=== PATIENT | male | born 1980 | race Caucasian/White ===

== ENCOUNTER 2018-12-11 12:34 | Emergency (ER) | payer SELFPAY ==
[~2018-12-11] VITALS: Ht 167.6 cm; Wt 52.2 kg
--- NOTE | 2018-12-11 13:05 | ED General ---
General Stated Complaint: GENITAL RASH History of Present Illness Date Seen by Provider: Dec 11, 2018 Time Seen by Provider: 13:04 Initial Comments Patient is a 38-year-old male who presents to the emergency department today accompanied by his for evaluation of a penile injury. The patient states that 3 nights ago he was having oral intercourse and this was preceded by vaginal intercourse.. The next morning he woke up with a sore on the tip of his penis near the urethral meatus. He states it was initially a blister but then turned into a scab over the last 24 hours. No urethral discharge. No difficulty with urination. No fevers. No testicular pain. Patient has been and monogamous for 16 years. Allergies and Home Medications Home Medications Clindamycin HCl 300 Mg Capsule, 300 MG PO TID Prescribed by: CIARAN EASLEY on 12/11/18 7406 Patient Home Medication List Home Medication List Reviewed: Yes Review of Systems Review of Systems Constitutional: no symptoms reported EENTM: no symptoms reported Respiratory: no symptoms reported Cardiovascular: no symptoms reported Gastrointestinal: no symptoms reported Genitourinary: see HPI Musculoskeletal: no symptoms reported Skin: no symptoms reported Physical Exam Vital Signs Capillary Refill : Height, Weight, BMI Height: '" Weight: lbs. oz. kg; BMI Method: General Appearance: No Apparent Distress, WD/WN HEENT: PERRL/EOMI Neck: Full Range of Motion, Normal Inspection Respiratory: Chest Non Tender, Lungs Clear Cardiovascular: Regular Rate, Rhythm Genital/Rectal: Other (very small scab over the superior aspect of the head of the penis just near the urethral meatus. Measures less than 2 mm or approximately 2 mm. No surrounding erythema. The urethral meatus itself is clear and free from discharge. No testicular pain or masses. No epididymal tenderness to manipulation.) Progress/Results/Core Measures Suspected Sepsis SIRS Temperature: Pulse: Respiratory Rate: Blood Pressure / Mean: Results/Orders Vital Signs/I&O Capillary Refill : Progress Note : Time: 13:11 Progress Note Patient is seen and examined in the ER for a small sore on the tip of his penis. No acute signs of infection are present. Patient has low risk for sexually tra nsmitted disease based on his sexual history and he does seem reliable. His is in the room during the interview. On physical exam, he appears to have mild trauma more than any STD. There is no ulcer or chancre. No urethral discharge. I discussed options of testing for STD either via swab or urine. I informed the patient that the tests were only checked for gonorrhea and Chlamydia and that he could go to the health department if he is worried about syphilis. The patient has some concerns over expense and he does have a low suspicion for STD. Because of this, decision is made not to test. Patient is requesting antibiotics as he f ears the lesion may become infected. He does have very poor dentition as does his . This seems reasonable. He is placed on clindamycin. Discharge from the ER. Advised to follow-up at the health department if his symptoms do not improve. Departure Impression Primary Impression: Injury of penile urethra Disposition: HOME, SELF-CARE Condition: Improved Departure-Patient Inst. Referrals: JOESPH SHI MD (PCP/Family) Primary Care Physician Scripts Clindamycin HCl (Clindamycin HCl) 300 Mg Capsule 300 MG PO TID for 7 Days, #21 CAP 0 Refills Prov: CIARAN EASLEY DO 12/11/18 CIARAN EASLEY DO Dec 11, 2018 13:05
[2018-12-11] MEDS ORDERED: CLIN300C11 PO (13:07)
[2018-12-11 13:15] VITALS: BP 118/71
== END 2018-12-11 13:17 | disposition home or self-care (01) ==
LOC: ER FS 12:37
DX: S37.39XA Other injury of urethra, initial encounter (principal); X58.XXXA Exposure to other specified factors, initial encounter
CPT/HCPCS: 99283

== ENCOUNTER 2019-02-11 12:54 | Emergency (ER) | payer SELFPAY ==
[~2019-02-11] VITALS: Ht 165 cm; Wt 50.8 kg
[~2019-02-11 12:54] MED LIST: CLIN300C11 PO
[2019-02-11] MEDS ORDERED: LIDOCAINE/EPI 2% 1:100,00 (XYLOCAINE) 20 ML VIAL ONE (12:59)
--- NOTE | 2019-02-11 13:13 | ED Integumentary General ---
General Chief Complaint: Skin/Wound Problems Stated Complaint: LT KNEE WOUND History of Present Illness Date Seen by Provider: Feb 11, 2019 Time Seen by Provider: 13:12 Initial Comments Patient presenting to the [facility] department for evaluation of that wound to his left knee anteriorly that has been present for several years. He has recent trauma and was more painful and swollen. Allergies and Home Medications Allergies Coded Allergies: No Known Drug Allergies (Unverified , 02/11/19) Home Medications Clindamycin HCl 300 Mg Capsule, 300 MG PO TID Prescribed by: CIARAN EASLEY on 12/11/18 1307 Patient Home Medication List Home Medication List Reviewed: Yes Review of Systems Review of Systems Constitutional: no symptoms reported Musculoskeletal: no symptoms reported Skin: lesions Past Scgsfgj-Mpbivu-Tzfaxg Hx Patient Social History Type Used: Cigarettes 2nd Hand Smoke Exposure: No Recent Hopitalizations: No Seasonal Allergies Seasonal Allergies: No Past Medical History Surgeries: No Respiratory: No Cardiac: No Neurological: No Genitourinary: No Gastrointestinal: No Musculoskeletal: No Endocrine: No HEENT: No Cancer: No Psychosocial: No Integumentary: No Physical Exam Vital Signs Vital Signs - First Documented 02/11/19 13:00 Temp 37.4 Pulse 73 Resp 16 B/P (MAP) 108/70 (83) Pulse Ox 98 O2 Delivery Room Air Capillary Refill : General Appearance: WD/WN, no apparent distress Cardiovascular: regular rate, rhythm Skin: other (Cystic appearing lesion on L anterior knee appx 1 x 1 cm. Red with induration noted.) Procedures/Interventions I&D : Blade Size: 11 I & D Procedure: betadine prep Progress Wound prepped and draped in normal sterile fashion and skin was cleansed with chlorhexidine and injected with 3 cc of 1% lidocaine with epinephrine. 11 blade was used to incise the wound and no purulence was expressed however there was a calcified tissue as well as cottage cheese-appearing material consistent with a subcutaneous cyst that was evacuated. Wound was bleeding but would stop with direct pressure. Progress/Results/Core Measures Results/Orders My Orders Orders - MAGDALENA MARRERO DO Lidocaine/Epi 2% 1:100,000 (Xylocaine/Ep (02/11/19 12:59) Lidocaine/Epi 2% 1:100,000 (Xylocaine/Ep (02/11/19 13:30) Vital Signs/I&O 02/11/19 13:00 Temp 37.4 Pulse 73 Resp 16 B/P (MAP) 108/70 (83) Pulse Ox 98 O2 Delivery Room Air Progress Progress Note : Progress Note Patient with subcutaneous cyst that may have become infected. Wound was opened and no purulence was expressed however do believe this is a subcutaneous cyst will require general surgeon to completely excised. Patient was given information for a local surgeon to follow with put on Keflex told to come back into the car with worsening pain fevers drainage or other general concerns. Departure Impression Primary Impression: Subcutaneous cyst Disposition: HOME, SELF-CARE Condition: Stable Departure-Patient Inst. Referrals: JOESPH SHI MD (PCP/Family) Primary Care Physician Patient Instructions: Wound Incision and Drainage (DC) Add. Discharge Instructions: All discharge instructions reviewed with patient and/or family. Voiced understanding. Follow with a surgeon and come back sooner with any new or worsening symptoms. Thank you! Scripts Cephalexin (Keflex) 500 Mg Capsule 500 MG PO BID, #10 CAP Prov: MAGDALENA MARRERO DO 02/11/19 MAGDALENA MARRERO DO Feb 11, 2019 13:13
[2019-02-11] MEDS ORDERED: LIDOCAINE/EPI 2% 1:100,00 (XYLOCAINE) 20 ML VIAL INJ ONE (13:30)
[2019-02-11] MEDS ORDERED: CEPH-507 PO (13:31)
[2019-02-11 13:34] VITALS: BP 108/70
== END 2019-02-11 13:34 | disposition home or self-care (01) ==
LOC: EDUNIT# 12:54 → ER FS 12:56
DX: L72.9 Follicular cyst of the skin and subcutaneous tissue, unspecified (principal)
CPT/HCPCS: 99282

== ENCOUNTER 2020-04-12 02:48 | Emergency (ER) | payer SELFPAY ==
[~2020-04-12] VITALS: Ht 167.4 cm; Wt 52.1 kg
[~2020-04-12 02:48] MED LIST changes: +CEPH-507 PO
[2020-04-12 02:56] VITALS: BP 149/83
[2020-04-12 03:24] LABS: CLARITY,URINE CLEAR; COLOR,URINE YELLOW
[2020-04-12 03:25] LABS: BILIRUBIN,URINE NEGATIVE (NEGATIVE); GLUCOSE, URINE (UA) NEGATIVE (NEGATIVE); KETONES,URINE NEGATIVE (NEGATIVE); LEUKOCYTE ESTERASE ,URINE NEGATIVE (NEGATIVE); NITRITE,URINE NEGATIVE (NEGATIVE); PROTEIN,URINE NEGATIVE (NEGATIVE)
--- NOTE | 2020-04-12 06:41 | ED GU-Female ---
General Chief Complaint: - Urinary Stated Complaint: URINARY PROBLEMS Nursing Triage Note: pt reports increased frequency, bilateral back discomfort and fullness. denies fever. Nursing Sepsis Screen: No Definite Risk Source: patient History of Present Illness Date Seen by Provider: Apr 12, 2020 Time Seen by Provider: 03:00 Initial Comments Patient is a 39-year-old male who presents with bilateral flank pain and the urge to urinate. Patient also reports tingling after urination. He denies hematuria, nausea, vomiting, chills, sweats, lower abdominal pain or pelvic pain. He denies constipation diarrhea. No testicular pain tenderness or swelling. No history of kidney stones. Patient currently rates his pain a 1 out of 10. No history of urinary tract infections or prostatitis. However, the patient did take one Cipro pill 3 hours prior to ED arrival. He states his spouse had leftover antibiotics from a previous urinary tract infection. No ot her acute symptoms or complaints. Timing/Duration: just prior to arrival Severity/Quality: moderate Location: suprapubic Radiation: suprapubic Activities at Onset: none Prior Genitourinary Problems: none Modifying Factors: Improves With Urinating Associated Symptoms: denies symptoms Allergies and Home Medications Allergies Coded Allergies: No Known Drug Allergies (Unverified , 02/11/19) Home Medications Cephalexin 500 Mg Capsule, 500 MG PO BID Prescribed by: MAGDALENA MARRERO on 02/11/19 1331 Clindamycin HCl 300 Mg Capsule, 300 MG PO TID Prescribed by: CIARAN EASLEY on 12/11/18 1307 Patient Home Medication List Home Medication List Reviewed: Yes Review of Systems Review of Systems Constitutional: see HPI EENTM: see HPI Respiratory: see HPI Cardiovascular: see HPI Gastrointestinal: see HPI Genitourinary: see HPI Musculoskeletal: see HPI Skin: see HPI Psychiatric/Neurological: See HPI Endocrine: See HPI Hematologic/Lymphatic: See HPI All Other Systemes Reviewed Negative Unless Noted: Yes Past Qvyuwcc-Gsatkr-Evjqpe Hx Past Med/Social Hx: Reviewed and Corrections made Patient Social History Type Used: Cigarettes 2nd Hand Smoke Exposure: No Recent Foreign Travel: No Contact w/Someone Who Travel: No Recent Infectious Disease Expo: No Recent Hopitalizations: No Physical Abuse: No Sexual Abuse: No Seasonal Allergies Seasonal Allergies: No Past Medical History Surgeries: No Respiratory: No Cardiac: No Neurological: No Genitourinary: No Gastrointestinal: No Musculoskeletal: No Endocrine: No HEENT: No Cancer: No Psychosocial: No Integumentary: No Blood Disorders: No Physical Exam Vital Signs Vital Signs - First Documented 04/12/20 02:56 Temp 36.9 Pulse 83 Resp 14 B/P (MAP) 149/83 (105) Pulse Ox 99 O2 Delivery Room Air Capillary Refill : Less Than 3 Seconds Height, Weight, BMI Height: 5'6.00" Weight: 115lbs. oz. 52.711157lm; 18.00 BMI Method:Stated General Appearance: WD/WN, no apparent distress, other HEENT: PERRL/EOMI, normal ENT inspection Neck: full range of motion, supple, normal inspection Cardiovascular: normal peripheral pulses, regular rate, rhythm Respiratory: lungs clear, normal breath sounds Gastrointestinal: non tender, soft Back: normal inspection, no CVA tenderness Neurologic/Psychiatric: asset protection specialist II-XII nml as tested, alert, oriented x 3 Progress/Results/Core Measures Suspected Sepsis Recent Fever Within 48 Hours: No Infection Criteria Present: None New/Unexplained Altered Menta: No Sepsis Screen: No Definite Risk SIRS Temperature: Pulse: 83 Respiratory Rate: 14 Blood Pressure 149 /83 Mean: 105 Results/Orders Lab Results Laboratory Tests Test 04/12/20 02:55 Range/Units Urine Color YELLOW Urine Clarity CLEAR Urine pH 6.0 5-9 Urine Specific Hume >1.030 1.016-1.022 Urine Protein NEGATIVE NEGATIVE Urine Glucose (UA) NEGATIVE NEGATIVE Urine Ketones NEGATIVE NEGATIVE Urine Nitrite NEGATIVE NEGATIVE Urine Bilirubin NEGATIVE NEGATIVE Urine Urobilinogen 0.2 < = 1.0 MG/DL Urine Leukocyte Esterase NEGATIVE NEGATIVE Urine RBC (Auto) TRACE H NEGATIVE Urine RBC 2-5 H /HPF Urine WBC NONE /HPF Urine Crystals NONE /LPF Urine Bacteria NONE /HPF Urine Casts NONE /LPF Urine Mucus MODERATE H /LPF Urine Culture Indicated NO My Orders Orders - CURTIS GARCIAS DO Urinalysis (04/12/20 03:02) Vital Signs/I&O 04/12/20 02:56 Temp 36.9 Pulse 83 Resp 14 B/P (MAP) 149/83 (105) Pulse Ox 99 O2 Delivery Room Air Capillary Refill : Less Than 3 Seconds Blood Pressure Mean: 105 Departure Communication (Admissions) Patient UA unremarkable. No back pain or abdominal pain during ED visit. No further workup at this time. Recommend patient continue Cipro floxacillin which appeared to improve his symptoms prior to coming to the emergency department and follow-up with his PCP in 2-3 days for reevaluation. Return precautions reviewed. Patient verbalizes understanding and agreement discharge instructions prior to departure. Impression Primary Impression: Back pain Additional Impression: Dysuria Disposition: 01 HOME, SELF-CARE Condition: Stable Departure-Patient Inst. Decision time for Depature: 03:30 Referrals: JOESPH SHI MD (PCP) Primary Care Physician Patient Instructions: Urinary Tract Infection, Adult (DC) Add. Discharge Instructions: Please increase fluids and finish out for remaining 3 ciprofloxacin. Take Tylenol as needed for flank pain and follow-up with your PCP for reevaluation. Return to ED if new or worsening symptoms. All discharge instructions reviewed with patient and/or family. Voiced understanding. CURTIS GARCIAS DO Apr 12, 2020 06:40
== END 2020-04-12 03:51 | disposition home or self-care (01) ==
LOC: EDUNIT# 02:48 → ER FS 02:52
DX: M54.9 Dorsalgia, unspecified (principal); R30.0 Dysuria
CPT/HCPCS: 81000; 99282